=== PATIENT | male | born 1975 | race Caucasian/White ===

== ENCOUNTER 2025-01-03 10:49 | Outpatient (CLI) | payer BC, SELFPAY ==
[2025-01-03 11:03] VITALS: BP 118/75; PULSE 67; RESP 16; TEMP 37.2; O2SAT 96; BMI 42.5
--- NOTE | 2025-01-03 11:46 | P.ANES_ITS ---
Anesthesia Charges Start Date/Time Anesthesia Start Date: 01/03/25 Anesthesia Start Time: 12:11 Stop Date/Time Anesthesia Stop Date: 01/03/25 Anesthesia Stop Time: 12:31 Coding CPT Codes CPT Codes: ANESTH BONE ASPIRATE/BX - 37188 ([id number]) P3 - PATIENT W/SEVERE SYS DISEASE, QK - MECHANICAL OXIDIZER 2-4 CNCRNT ANES PROC, QX - COMPUTER SYSTEMS INTEGRATOR SVC W/ MD MED DIRECTION
--- NOTE | 2025-01-03 11:46 | W.ANESCHARGE ---
Anesthesia Charges Start Date/Time Anesthesia Start Date: 01/03/25 Anesthesia Start Time: 12:11 Stop Date/Time Anesthesia Stop Date: 01/03/25 Anesthesia Stop Time: 12:31 Coding CPT Codes CPT Codes: ANESTH BONE ASPIRATE/BX - 62910 ([id number]) P3 - PATIENT W/SEVERE SYS DISEASE, QK - DOCUMENT MANAGEMENT SPECIALIST 2-4 CNCRNT ANES PROC, QX - [place] CONSERVATION LABORER SVC W/ MD MED DIRECTION
--- NOTE | 2025-01-03 12:33 | P.ANES_ITS ---
Anesthesia Charges Start Date/Time Anesthesia Start Date: 01/03/25 Anesthesia Start Time: 12:11 Stop Date/Time Anesthesia Stop Date: 01/03/25 Anesthesia Stop Time: 12:31 Coding CPT Codes CPT Codes: ANESTH BONE ASPIRATE/BX - 38060 ([id number]) P3 - PATIENT W/SEVERE SYS DISEASE, QX - JIGMAN SVC W/ MD MED DIRECTION, QK - FLUME MAKER 2-4 CNCRNT ANES PROC
--- NOTE | 2025-01-03 12:33 | W.ANESCHARGE ---
Anesthesia Charges Start Date/Time Anesthesia Start Date: 01/03/25 Anesthesia Start Time: 12:11 Stop Date/Time Anesthesia Stop Date: 01/03/25 Anesthesia Stop Time: 12:31 Coding CPT Codes CPT Codes: ANESTH BONE ASPIRATE/BX - 43708 ([id number]) P3 - PATIENT W/SEVERE SYS DISEASE, QX - MUSIC CATALOGUER SVC W/ MD MED DIRECTION, QK - TOPSTITCHER LOCKSTITCH 2-4 CNCRNT ANES PROC
[2025-01-03 12:34] VITALS: BP 109/66; PULSE 70; RESP 16; O2SAT 93
[2025-01-03 12:39] VITALS: BP 105/65; PULSE 67; RESP 16; O2SAT 94
[2025-01-03 12:45] VITALS: BP 102/66; PULSE 63; RESP 16; O2SAT 96
[2025-01-03 13:04] LABS: Basophils Absolute Auto 0.04 K/uL (0.00-0.30); Basophils Percent Auto 0.6 % (0.0-3.0); Eosinophils Absolute Auto 0.28 K/uL (0.00-0.50); Eosinophils Percent Auto 4.2 % (0.0-7.0); Hematocrit* 47.8 % (37.0-53.0); Immature Granulocytes Abs Auto 0.02 K/uL (0.00-0.30); Immature Granulocytes Pct Auto 0.3 %; Immature Reticulocyte Fraction 13.4 % (2.3-13.4); Lymphocytes Absolute Auto 1.99 K/uL (0.90-2.90); Lymphocytes Percent Auto 29.9 % (20-44); Mean Corpuscular HGB Conc 36 gm/dL (32-36); Mean Corpuscular Hemoglobin 30 pg (26-34); Mean Corpuscular Volume 84 fL (80-100); Monocytes Percent Auto 7.8 % (0.0-11.0); Neutrophils Absolute Auto 3.81 K/uL (1.7-7.0); Neutrophils Percent Auto 57.2 % (42.0-72.0); Platelet Count* 153 K/uL (140-440); RDW Coefficient of Variation % 12.7 % (11.5-15.5); Reticulocyte Hemoglobin Equivi 32.9 pg (29.0-35.0); Reticulocyte Percent 2.7 % (0.5-2.0); Reticulocytes Absolute 0.16 # (0.03-0.08); White Blood Count* 6.66 K/uL (4.50-11.00)
[2025-01-03 13:07] LABS: Slide Review Reflex No
== END 2025-01-03 13:03 ==
PROVIDERS: PCP Student in an Organized Health Care Education/Training Program; Visit Provider Internal Medicine Hematology & Oncology
DX: D47.1 Chronic myeloproliferative disease (principal); D77 Other disorders of blood and blood-forming organs in diseases classified elsewhere; D75.1 Secondary polycythemia
CPT/HCPCS: 01112; 36415; 38222; 81450; 85025; 85045; 88237; 88264; 88305; 88311; 88313; 88341; 88342; 88360; J1644; J2003; J2704

== ENCOUNTER 2025-01-15 11:00 | Outpatient (RCR) | payer BC, SELFPAY | END 2025-07-14 23:59 | disposition home or self-care (01) | LOC: CCIC 11:00 | PROVIDERS: PCP Student in an Organized Health Care Education/Training Program; Visit Provider Internal Medicine Hematology & Oncology | DX: D75.1 Secondary polycythemia (principal); R16.1 Splenomegaly, not elsewhere classified; G47.33 Obstructive sleep apnea (adult) (pediatric) | CPT/HCPCS: 99213; G0463 ==